=== PATIENT | female | born 1935 | race Caucasian/White ===

== ENCOUNTER 2021-03-04 13:40 | Inpatient (IN) ==
[2021-03-04] MEDS ORDERED: SODIUM CHLORIDE 0.9% 500 ML IV STA ×2 (17:08→19:48)
[2021-03-04 18:07] LABS: Amorphous Crystals,Urine Occasional /HPF (Few); Bacteria,Urine Occasional /HPF (Few); Bilirubin,Urine Negative (Negative); Blood, Urine Negative (Negative); Glucose,Urine (UA) Negative (Negative); Ketones,Urine Negative (Negative); Nitrite,Urine Negative (Negative); Protein,Urine Negative; Urine Appearance Slightly Hazy (Clear); Urine Color Amber (Yellow); Urine Specific Gravity 1.021 (1.001-1.035)
[2021-03-04 18:20] LABS: Basophils % 0.3 % (0.0-0.8); Eosinophils % 0.1 % (0.00-10.9); Hematocrit 42.5 VOL% (35.7-47.0); Hemoglobin 13.7 GM/DL (12.0-16.0); Immature Granulocytes % 0.6 %; Immature Granulocytes Absolute 0.08 #; Lymphocytes # 0.8 10*3/uL (1.4-4.0); Lymphocytes % 5.5 % (21.3-54.2); Mean Corpuscular HGB Conc 32.2 GM/DL (32-36); Mean Corpuscular Volume 97.7 FL (87-102); Mean Platelet Volume 10.7 FL (9.6-12.0); Monocytes % 6.5 % (1.7-12.7); Platelet Count 274 T/CUMM (130-400); Red Blood Count 4.35 MC/CUMM (3.8-5.5); White Blood Count 14.1 T/CUMM (4-12)
[2021-03-04 19:09] LABS: Alanine Aminotransferase 11 U/L (13-56); Albumin 2.8 G/DL (3.4-5.0); Alkaline Phosphatase 100 U/L (45-117); Aspartate Amino Transferase 10 U/L (0-37); Blood Urea Nitrogen 37 MG/DL (7-18); Calcium 9.7 MG/DL (8.5-10.1); Carbon Dioxide 27 MMOL/L (21-32); Estimated Glom Filtration Rate 41 ML/MIN; Glucose 105 MG/DL (74-106); Osmolality,Calculated 291.1 MOS/KG (273-304); Potassium 4.1 MMOL/L (3.5-5.1); Sodium 142 MMOL/L (136-145); Total Protein 6.8 G/DL (6.4-8.2)
[2021-03-04] MEDS ORDERED: AZITHROMYCIN INJ 500 MG in SODIUM CHLORIDE 0.9% 250 ML IV STA ×2 (20:46→21:20)
[2021-03-04] MEDS ORDERED: cefTRIAXone 1,000 MG in SODIUM CHLORIDE 0.9% 100 ML IV STA (20:46)
[2021-03-04] MEDS ORDERED: cefTRIAXone 1,000 MG VIAL ONE (20:50)
[2021-03-04] MEDS ORDERED: ONDANSETRON 4 MG/2 ML VIAL IV PRN (21:45)
[2021-03-04] MEDS ORDERED: ACETAMINOPHEN 325 MG TABLET PO PRN (21:45)
[2021-03-04] MEDS: DEXTROSE 5% NACL 0.45% 1,000 ML IV SCH (23:36)
[2021-03-05] MEDS: ALBUTEROL/IPRATROPIUM 3 ML NEB RESP TX SCH ×4 (00:30→23:11)
[2021-03-05 01:31] LABS: Basophils % 0.2 % (0.0-0.8); Eosinophils % 0.1 % (0.00-10.9); Hematocrit 38.6 VOL% (35.7-47.0); Hemoglobin 12.6 GM/DL (12.0-16.0); Immature Granulocytes % 0.4 %; Immature Granulocytes Absolute 0.05 #; Lymphocytes # 1.2 10*3/uL (1.4-4.0); Lymphocytes % 9.4 % (21.3-54.2); Mean Corpuscular HGB Conc 32.6 GM/DL (32-36); Mean Corpuscular Volume 97.7 FL (87-102); Mean Platelet Volume 10.3 FL (9.6-12.0); Monocytes % 7.6 % (1.7-12.7); Neutrophils % 82.3 % (38.7-73.9); Platelet Count 262 T/CUMM (130-400); Red Blood Count 3.95 MC/CUMM (3.8-5.5); Red Cell Distribution Width 13.1 % (9.3-17.3); White Blood Count 12.2 T/CUMM (4-12)
[2021-03-05] MEDS: PIPERACILLIN/TAZOBACTAM 3,375 MG in SODIUM CHLORIDE 0.9% 100 ML IV SCH ×3 (01:48→17:11)
[2021-03-05 01:53] LABS: Albumin 2.6 G/DL (3.4-5.0); Bilirubin,Total 0.8 MG/DL (0.2-1.0); Osmolality,Calculated 290.1 MOS/KG (273-304); Potassium 3.7 MMOL/L (3.5-5.1); Total Protein 6.3 G/DL (6.4-8.2)
[2021-03-05] MEDS ORDERED: ALPRAZolam 0.5 MG TABLET PO PRN (03:05)
[2021-03-05] MEDS ORDERED: DILTIAZEM 50 MG/10 ML VIAL IV ONE (08:55)
[2021-03-05] MEDS ORDERED: DILTIAZEM INJ 100 MG in SODIUM CHLORIDE 0.9% 100 ML IV SCH (09:00)
[2021-03-05 09:27] LABS: Troponin I < 0.015 NG/ML (0.00-0.045)
[2021-03-05] MEDS ORDERED: METOPROLOL TARTRATE 25 MG TABLET PO SCH (10:00)
[2021-03-05] MEDS: PANTOPRAZOLE 40 MG TABLET PO SCH (10:00)
[2021-03-05] MEDS: ENOXAPARIN 40 MG/0.4 ML SYRINGE SUBCUT SCH ×2 (10:01→23:10)
[2021-03-05] MEDS ORDERED: METOPROLOL TARTRATE 5 MG/5 ML VIAL IV PRN (12:46)
[2021-03-05] MEDS: ALPRAZolam 0.5 MG TABLET PO SCH ×2 (13:18→23:10)
[2021-03-05] MEDS: DEXTROSE 5% NACL 0.45% 1,000 ML IV SCH (14:54)
[2021-03-05] MEDS: MULTIVITAMIN INJ 10 ML, ZINC/COPPER/MANGANESE/SELENIUM 1 ML in AMINO ACIDS/DEXT/LYTES 4... IV SCH (19:23)
[2021-03-05] MEDS: ALBUMIN 25% 25 GM/100 ML VIAL IV SCH ×2 (19:23→23:49)
[2021-03-05] MEDS: METOPROLOL TARTRATE 25 MG TABLET PO SCH (23:10)
[2021-03-05] MEDS: ASCORBIC ACID 500 MG TABLET PO SCH (23:10)
[2021-03-06] MEDS: PIPERACILLIN/TAZOBACTAM 3,375 MG in SODIUM CHLORIDE 0.9% 100 ML IV SCH ×3 (01:15→18:21)
[2021-03-06] MEDS: ALBUTEROL/IPRATROPIUM 3 ML NEB RESP TX SCH ×4 (03:02→19:17)
[2021-03-06] MEDS: ALBUMIN 25% 25 GM/100 ML VIAL IV SCH ×2 (06:39→15:50)
[2021-03-06] MEDS: DEXTROSE 5% NACL 0.45% 1,000 ML IV SCH (06:39)
[2021-03-06] MEDS: ALPRAZolam 0.5 MG TABLET PO SCH ×3 (06:40→21:38)
[2021-03-06] MEDS: LEVOTHYROXINE 125 MCG TABLET PO SCH (10:21)
[2021-03-06] MEDS: ENOXAPARIN 40 MG/0.4 ML SYRINGE SUBCUT SCH ×2 (10:21→21:38)
[2021-03-06] MEDS: MAGNESIUM OXIDE 400 MG TABLET PO SCH (10:21)
[2021-03-06] MEDS: PANTOPRAZOLE 40 MG TABLET PO SCH (10:21)
[2021-03-06] MEDS: MULTIVITAMIN (CENTRUM) TABLET PO SCH (10:21)
[2021-03-06] MEDS: ASCORBIC ACID 500 MG TABLET PO SCH ×2 (10:22→20:45)
[2021-03-06] MEDS: METOPROLOL TARTRATE 25 MG TABLET PO SCH ×2 (11:15→20:45)
[2021-03-06] MEDS: FAT EMULSION 20% 250 ML IV SCH (15:49)
[2021-03-06] MEDS: MULTIVITAMIN INJ 10 ML, ZINC/COPPER/MANGANESE/SELENIUM 1 ML in AMINO ACIDS/DEXT/LYTES 4... IV SCH (15:49)
[2021-03-07] MEDS: ALBUTEROL/IPRATROPIUM 3 ML NEB RESP TX SCH ×4 (00:20→20:17)
[2021-03-07] MEDS: ALBUMIN 25% 25 GM/100 ML VIAL IV SCH ×2 (00:48→07:35)
[2021-03-07] MEDS: FAT EMULSION 20% 250 ML IV SCH ×2 (01:19→16:14)
[2021-03-07] MEDS: PIPERACILLIN/TAZOBACTAM 3,375 MG in SODIUM CHLORIDE 0.9% 100 ML IV SCH ×3 (02:04→17:01)
[2021-03-07] MEDS: ALPRAZolam 0.5 MG TABLET PO SCH ×3 (06:54→22:33)
[2021-03-07] MEDS: DEXTROSE 5% NACL 0.45% 1,000 ML IV SCH ×4 (07:31→22:33)
[2021-03-07 08:14] LABS: Basophils % 0.6 % (0.0-0.8); Eosinophils # 0.1 10*3/uL (0.0-0.87); Eosinophils % 1.3 % (0.00-10.9); Hematocrit 34.3 VOL% (35.7-47.0); Hemoglobin 10.9 GM/DL (12.0-16.0); Immature Granulocytes % 1.6 %; Immature Granulocytes Absolute 0.11 #; Lymphocytes % 14.7 % (21.3-54.2); Mean Corpuscular HGB Conc 31.8 GM/DL (32-36); Mean Platelet Volume 10.9 FL (9.6-12.0); Monocytes % 6.3 % (1.7-12.7); Neutrophils % 75.5 % (38.7-73.9); Platelet Count 205 T/CUMM (130-400); Red Blood Count 3.43 MC/CUMM (3.8-5.5); Red Cell Distribution Width 13.3 % (9.3-17.3); White Blood Count 6.7 T/CUMM (4-12)
[2021-03-07 08:39] LABS: Albumin 3.1 G/DL (3.4-5.0); Bilirubin,Total 0.6 MG/DL (0.2-1.0); Calcium 8.5 MG/DL (8.5-10.1); Osmolality,Calculated 290.8 MOS/KG (273-304); Potassium 3.2 MMOL/L (3.5-5.1); Total Protein 5.8 G/DL (6.4-8.2)
[2021-03-07] MEDS: MAGNESIUM OXIDE 400 MG TABLET PO SCH (09:27)
[2021-03-07] MEDS: PANTOPRAZOLE 40 MG TABLET PO SCH (09:27)
[2021-03-07] MEDS: ASCORBIC ACID 500 MG TABLET PO SCH ×2 (09:27→21:06)
[2021-03-07] MEDS: MULTIVITAMIN (CENTRUM) TABLET PO SCH (09:27)
[2021-03-07] MEDS: METOPROLOL TARTRATE 25 MG TABLET PO SCH ×2 (09:27→21:06)
[2021-03-07] MEDS: LEVOTHYROXINE 125 MCG TABLET PO SCH (09:27)
[2021-03-07] MEDS: ENOXAPARIN 40 MG/0.4 ML SYRINGE SUBCUT SCH ×2 (09:28→21:06)
[2021-03-07] MEDS ORDERED: IPRATROPIUM 500 MCG/2.5 ML NEB RESP TX PRN (10:15)
[2021-03-07] MEDS ORDERED: MAGNESIUM HYDROXIDE SUSP 30 ML UDCUP PO PRN (10:25)
[2021-03-07] MEDS ORDERED: MAGNESIUM HYDROXIDE SUSP 30 ML UDCUP PO SCH (11:00)
[2021-03-07] MEDS: MULTIVITAMIN INJ 10 ML, ZINC/COPPER/MANGANESE/SELENIUM 1 ML in AMINO ACIDS/DEXT/LYTES 4... IV SCH (16:14)
[2021-03-08] MEDS: PIPERACILLIN/TAZOBACTAM 3,375 MG in SODIUM CHLORIDE 0.9% 100 ML IV SCH ×2 (00:32→09:09)
[2021-03-08] MEDS: ALBUTEROL/IPRATROPIUM 3 ML NEB RESP TX SCH ×2 (01:35→07:19)
[2021-03-08] MEDS: ALPRAZolam 0.5 MG TABLET PO SCH (06:06)
[2021-03-08] MEDS: MAGNESIUM OXIDE 400 MG TABLET PO SCH (09:10)
[2021-03-08] MEDS: ENOXAPARIN 40 MG/0.4 ML SYRINGE SUBCUT SCH (09:10)
[2021-03-08] MEDS: ASCORBIC ACID 500 MG TABLET PO SCH (09:10)
[2021-03-08] MEDS: LEVOTHYROXINE 125 MCG TABLET PO SCH (09:10)
[2021-03-08] MEDS: PANTOPRAZOLE 40 MG TABLET PO SCH (09:10)
[2021-03-08] MEDS: METOPROLOL TARTRATE 25 MG TABLET PO SCH (09:11)
[2021-03-08] MEDS: DEXTROSE 5% NACL 0.45% 1,000 ML IV SCH (09:11)
[2021-03-08] MEDS: MULTIVITAMIN (CENTRUM) TABLET PO SCH (09:16)
[2021-03-08 11:35] VITALS: BP 117/81
[2021-03-08] MEDS ORDERED: POTASSIUM CHLORIDE 20 MEQ TABLET PO ONE (12:22)
[2021-03-08] MEDS ORDERED: HEPARIN LOCK FLUSH 500 UNIT/5 ML SYRINGE IV PRN (13:18)
[2021-03-08] MEDS ORDERED: HEPARIN LOCK FLUSH 500 UNIT/5 ML SYRINGE IV SCH (13:30)
== END 2021-03-08 13:53 | disposition hospice, home (50) | DRG 180 ==
LOC: N.ED 13:40 → N.EDINP 21:45 → N.3E 22:37 → N.ICU 03-05 08:44 → N.5E 03-05 16:09
PROVIDERS: ADMIT Internal Medicine; ATTEND Internal Medicine